=== PATIENT | female | born 1945 | race Caucasian/White ===

== ENCOUNTER → 2020-08-19 | Outpatient (CLI) | payer MEDICARE, OTHER ==
[~2020-08-19] MED LIST: ACET500; BENAML20/5; CARV25; CEPH500 PO; ESTMET; FURO40; HYDACE10B PO; META800 PO; NAPR500; Pyridium200 MG PO
== END ==
LOC: LAB 15:17 → LAB SHORT 15:17
DX: Z02.89 Encounter for other administrative examinations (principal)